=== PATIENT | female | born 1975 | race Caucasian/White ===

== ENCOUNTER 2019-12-27 16:42 | Emergency (ER) | payer SELFPAY ==
[~2019-12-27] VITALS: Ht 167.6 cm; Wt 48.0 kg
[~2019-12-27 16:42] MED LIST: AMOX500T2; METR-167; RANI150C12 PO
[2019-12-27 20:02] VITALS: BP 139/98
== END 2019-12-27 20:10 | disposition home or self-care (01) ==
LOC: ER 16:42
DX: J45.909 Unspecified asthma, uncomplicated (principal); Z79.899 Other long term (current) drug therapy
CPT/HCPCS: 99283

== ENCOUNTER 2020-05-03 10:44 | Emergency (ER) | payer SELFPAY ==
[~2020-05-03] VITALS: Ht 165.1 cm; Wt 54.0 kg
[2020-05-03] MEDS ORDERED: LORAZEPAM 2MG/ML CPJ IV ONE (11:15)
[2020-05-03] MEDS ORDERED: SODIUM CHLORIDE 0.9% 1,000 ML IV ONE (11:15)
[2020-05-03] MEDS ORDERED: FOLIC ACID 1 MG, THIAMINE HCL 100 MG, MVI, ADULT NO.1 10 ML in DEXTROSE 5% WATER 1,000 ML IV ONE ×4 (11:15)
[2020-05-03 11:41] LABS: BASOPHILS % 0.4 % (0.0-2.0); EOSINOPHILS % 0.3 % (0.0-5.0); HEMATOCRIT. 40.5 % (36.0-48.0); HEMOGLOBIN. 13.7 g/dL (12.0-16.0); LYMPHOCYTES % 43.4 % (20.0-50.0); MEAN CORPUSCULAR HEMOGLOBIN 32.2 pg (28.0-32.0); MEAN CORPUSCULAR VOLUME 94.8 fL (81.0-99.0); MEAN PLATELET VOLUME 8.3 fl (7.4-10.4); MONOCYTES % 8.3 % (2.0-8.0); NEUTROPHILS % 47.6 % (40.0-76.0); PLATELET 302 x1000/uL (130-400); RED BLOOD CELL COUNT 4.28 mill/uL (4.2-5.4); RED CELL DISTRIBUTION WIDTH 13.6 % (11.6-14.6)
[2020-05-03 11:46] LABS: CHLORIDE 108 mEq/L (98-107)
[2020-05-03 12:02] LABS: BG BASE EXCESS -2.3 mmol/L (-2.0-2.0); BG CARBOXYHEMOGLOBIN 0.7 % (0.5-1.5); BG DEOXYHEMOGLOBIN 2.2 % (0.0-5.0); BG HCO3 ACT 21.5 mmol/L (22.0-26.0); BG METHEMOGLOBIN 0.3 % (0.0-1.5); BG OXYGEN SATURATION 97.8 % (92.0-98.5); BG OXYHEMOGLOBIN 96.8 % (94.0-97.0); BG PCO2 34.2 mmHg (35.0-45.0); BG PH 7.417 (7.350-7.450); BG PO2 114.4 mmHg (75.0-100.0); BG SAMPLE SITE RIGHT BRACHIAL; BG TOTAL HEMOGLOBIN 13.6 g/dL (12.0-18.0); BG VENT MODE ROOM AIR
[2020-05-03 12:05] LABS: ETHANOL BLOOD 409 mg/dL
[2020-05-03 12:11] LABS: HCG SCREEN NEGATIVE
[2020-05-03] MEDS ORDERED: CHLORDIAZEPOXIDE 25MG CAPSULE PO ONE (12:30)
[2020-05-03 18:39] VITALS: BP 107/75
== END 2020-05-03 18:42 | disposition home or self-care (01) ==
LOC: ER 11:03
DX: T51.91XA Toxic effect of unspecified alcohol, accidental (unintentional), initial encounter (principal); J45.909 Unspecified asthma, uncomplicated; Z20.828 Contact with and (suspected) exposure to other viral communicable diseases
CPT/HCPCS: 36415; 36600; 80053; 80307; 80320; 80329; 82375; 82805; 82962; 84703; 85025; 93005; 96365; 96375; 99284; J2060; J3411; J3490; J7030; J7070; G0480

== ENCOUNTER 2021-12-03 19:57 | Emergency (ER) | payer SELFPAY ==
[~2021-12-03] VITALS: Ht 175.3 cm; Wt 58.0 kg
[2021-12-03 20:05] VITALS: BP 130/82
[2021-12-04] MEDS ORDERED: BO1 TP (00:01)
[2021-12-04] MEDS ORDERED: SULF1TAB48 PO (00:01)
== END 2021-12-04 00:31 | disposition home or self-care (01) ==
LOC: ER 19:57
DX: L03.811 Cellulitis of head [any part, except face] (principal); S00.01XA Abrasion of scalp, initial encounter; X58.XXXA Exposure to other specified factors, initial encounter; Y93.89 Activity, other specified; Y92.89 Other specified places as the place of occurrence of the external cause
CPT/HCPCS: 99283

== ENCOUNTER 2023-09-16 07:26 | Emergency (ER) | payer SELFPAY ==
[~2023-09-16] VITALS: Ht 167.6 cm; Wt 54.4 kg
[~2023-09-16 07:26] MED LIST changes: +BO1 TP; +SULF1TAB48 PO
[2023-09-16 07:51] VITALS: BP 99/69; PULSE 77; RESP 16; TEMP 98.2; O2SAT 99
[2023-09-16] MEDS: FLUORESCEIN SODIUM 1MG/STRIP RIGHTEYE ONE (08:00)
[2023-09-16] MEDS: TETRACAINE 0.5% OPHTH DROPS 4ML RIGHTEYE ONE (08:00)
[2023-09-16] MEDS ORDERED: TRIMO RIGHTEYE (09:31)
== END 2023-09-16 09:58 | disposition home or self-care (01) ==
LOC: ER 07:26
DX: S05.01XA Injury of conjunctiva and corneal abrasion without foreign body, right eye, initial encounter (principal); J45.909 Unspecified asthma, uncomplicated; F10.20 Alcohol dependence, uncomplicated; X58.XXXA Exposure to other specified factors, initial encounter; Y93.89 Activity, other specified; Y92.89 Other specified places as the place of occurrence of the external cause; Y99.8 Other external cause status; Y90.9 Presence of alcohol in blood, level not specified
CPT/HCPCS: 99283

== ENCOUNTER 2023-10-06 10:30 | Emergency (ER) | payer MEDICAID ==
[~2023-10-06] VITALS: Ht 177.8 cm; Wt 55.0 kg
[~2023-10-06 10:30] MED LIST changes: +TRIMO RIGHTEYE
[2023-10-06 10:42] VITALS: BP 110/74; PULSE 70; RESP 16; TEMP 98.9; O2SAT 98
[2023-10-06] MEDS: ACETAMINOPHEN 325MG TABLET PO NR (11:32)
[2023-10-06] MEDS: TETRACAINE 0.5% OPHTH DROPS 4ML BOTHEYE NR (11:32)
[2023-10-06] MEDS ORDERED: NAPR-681 PO (13:31)
== END 2023-10-06 13:34 | disposition home or self-care (01) ==
LOC: ER 10:35
DX: S00.83XA Contusion of other part of head, initial encounter (principal); S50.311A Abrasion of right elbow, initial encounter; H10.213 Acute toxic conjunctivitis, bilateral; F10.20 Alcohol dependence, uncomplicated; Y08.89XA Assault by other specified means, initial encounter; Y93.89 Activity, other specified; Y92.89 Other specified places as the place of occurrence of the external cause; Y99.8 Other external cause status
CPT/HCPCS: 99284